=== PATIENT | male | born 1975 | race Two or more races ===

== ENCOUNTER 2019-06-10 10:26 | Emergency (ER) | payer SELFPAY ==
[~2019-06-10] VITALS: Ht 177.8 cm; Wt 73.0 kg
[2019-06-10] MEDS: SODIUM CHLORIDE 0.9% 1,000 ML IV ONE (12:20)
[2019-06-10 12:32] LABS: BASOPHILS % 0.8 % (0.0-2.0); EOSINOPHILS % 0.8 % (0.0-5.0); HEMOGLOBIN. 15.4 g/dL (14.0-18.0); LYMPHOCYTES % 21.1 % (20.0-50.0); MEAN CORPUSCULAR HEMOGLOBIN 32.1 pg (28.0-32.0); MONOCYTES % 9.3 % (2.0-8.0); RED BLOOD CELL COUNT 4.79 mill/uL (4.7-6.1); RED CELL DISTRIBUTION WIDTH 12.8 % (11.6-14.6)
[2019-06-10 12:39] LABS: CHLORIDE 107 mEq/L (98-107)
[2019-06-10 12:42] LABS: INR 1.2; PROTHROMBIN TIME 12.4 sec (9.6-11.0)
[2019-06-10] MEDS: KETOROLAC 30MG/ML VIAL IV STA (13:06)
[2019-06-10] MEDS: ONDANSETRON HCL 4MG/2ML INJ IV STA (13:06)
[2019-06-10 13:42] LABS: MEAN PLATELET VOLUME 9.9 fl (7.4-10.4); PLATELET 140 x1000/uL (130-400)
[2019-06-10 15:45] VITALS: BP 118/70
== END 2019-06-10 15:51 | disposition home or self-care (01) ==
LOC: ER 10:26
DX: N13.2 Hydronephrosis with renal and ureteral calculous obstruction (principal); K80.20 Calculus of gallbladder without cholecystitis without obstruction; N32.9 Bladder disorder, unspecified; N18.9 Chronic kidney disease, unspecified
CPT/HCPCS: 36415; 74176; 76770; 80053; 83605; 83690; 85025; 85610; 96361; 96374; 96375; 99284; J1885; J2405; J7030

== ENCOUNTER 2019-07-29 18:42 | Emergency (ER) | payer SELFPAY ==
[~2019-07-29] VITALS: Ht 167.6 cm; Wt 70.0 kg
[2019-07-29 19:00] VITALS: BP 143/78
== END 2019-07-29 23:49 | disposition left against medical advice (07) ==
LOC: ER 18:42
DX: R10.9 Unspecified abdominal pain (principal); Z53.21 Procedure and treatment not carried out due to patient leaving prior to being seen by health care provider